=== PATIENT | male | born 1950 | race Hispanic/Latino ===

== ENCOUNTER → 2024-01-24 | Outpatient (REF) | payer MEDICARE ==
[~2024-01-24] MED LIST: FUROSEMIDE INJ 10 MG/ML 4 ML VIAL ONE
== END ==
LOC: NM 08:22
PROVIDERS: ATTEND Urology
DX: N13.30 Unspecified hydronephrosis (principal)
CPT/HCPCS: 78708; A9562; J1940

== ENCOUNTER → 2024-07-02 | Outpatient (REF) | payer MEDICARE | LOC: US 11:48 | PROVIDERS: ATTEND Urology | DX: D41.02 Neoplasm of uncertain behavior of left kidney (principal) | CPT/HCPCS: 71046; 76770; 76857 ==

== ENCOUNTER → 2024-10-22 | Outpatient (REF) | payer MEDICARE | LOC: US 10:03 | PROVIDERS: ATTEND Urology | DX: C64.2 Malignant neoplasm of left kidney, except renal pelvis (principal); N18.9 Chronic kidney disease, unspecified | CPT/HCPCS: 74018; 76770; 76857 ==